=== PATIENT | female | born 1980 ===

== ENCOUNTER → 2025-06-17 07:03 | Outpatient (REF) | payer BC, SELFPAY | LOC: WDC 07:03 | PROVIDERS: ATTENDING PHYSICIAN Nurse Practitioner Primary Care | DX: Z12.31 Encounter for screening mammogram for malignant neoplasm of breast (principal) | CPT/HCPCS: 77063; 77067 ==

== ENCOUNTER → 2025-10-28 07:52 | Outpatient (REF) | payer BC, SELFPAY | LOC: WDC 07:52 | PROVIDERS: ATTENDING PHYSICIAN Nurse Practitioner Primary Care | DX: R92.30 Dense breasts, unspecified (principal) | CPT/HCPCS: 76641 ==